=== PATIENT | female | born 1985 | race Caucasian/White ===

== ENCOUNTER 2020-06-04 11:25 | Emergency (ER) | payer OTHER ==
[2020-06-04] MEDS ORDERED: DIPH/PERTUSS(ACELL)/TETANUS VAC/PF 0.5 ML SYR (>=10YO) IM ONE (11:56)
[2020-06-04] MEDS ORDERED: HYDROCODONE/ACETAMINOPHEN 5-325 MG TABLET PO ONE (11:56)
--- NOTE | 2020-06-04 11:59 | ER Document Report ---
ED Medical Screen (RME) - General Chief Complaint: Foot Injury Stated Complaint: FALL/FOOT INJURY Time Seen by Provider: 06/04/20 11:50 Notes: Patient is a 35-year-old female who presents emergency department with a chief complaint of toe injury. Patient reports this morning she was walking on her new hardwood floors when she slipped striking the bedpost with her foot. She states that the bedpost went in between her fourth and fifth digit of the left foot causing them to split with 2 open wounds. Patient reports deformity compared to her right foot and per her normal. - Related Data Allergies/Adverse Reactions: morphine Allergy (Severe, Verified 06/04/20 11:49) Respiratory arrest adhesive tape Allergy (Mild, Verified 06/04/20 11:49) Skin Redness jameson Allergy (Mild, Verified 06/04/20 11:49) Skin Redness Past Medical History - Social History Frequency of alcohol use: Rare Physical Exam - Vital signs Vitals: Temp Pulse Resp BP Pulse Ox 98.1 F 92 18 143/97 H 97 06/04/20 11:32 06/04/20 11:32 06/04/20 11:32 06/04/20 11:32 06/04/20 11:32 Course - Re-evaluation Re-evalutation: 06/04/20 11:58 Patient has an open wound between the fourth and fifth digit at the base of the toes as well is in between the third and fourth digit. Unable to visualize the wound clearly due to blood. Dressing was applied in triage. I have greeted and performed a rapid initial assessment of this patient. A comprehensive ED assessment and evaluation of the patient, analysis of test results and completion of the medical decision making process will be conducted by additional ED providers. - Vital Signs Vital signs: Temp Pulse Resp BP Pulse Ox 98.1 F 92 18 143/97 H 97 06/04/20 11:32 06/04/20 11:32 06/04/20 11:32 06/04/20 11:32 06/04/20 11:32
--- NOTE | 2020-06-04 12:29 | RADIOLOGY REPORT (SQ) ---
EXAM DESCRIPTION: FOOT LEFT COMPLETE IMAGES COMPLETED DATE/TIME: 06/04/2020 12:17 pm REASON FOR STUDY: 4th and 5th digit toe injury, open wound COMPARISON: None. NUMBER OF VIEWS: Three views. TECHNIQUE: AP, lateral and oblique radiographic images acquired of the left foot. LIMITATIONS: None. FINDINGS: MINERALIZATION: Normal. BONES: There is a fracture of the distal aspect of the 4th proximal phalanx. JOINTS: No effusions. SOFT TISSUES: No soft tissue swelling. No foreign body. OTHER: No other significant finding. IMPRESSION: 4th proximal phalanx fracture. TECHNICAL DOCUMENTATION: JOB ID: [id number] 2010 [employer]- All Rights Reserved Reading location - IP/workstation name: [email or web address]
[2020-06-04] MEDS ORDERED: CEPHALEXIN 500 MG CAPSULE PO ONE (14:29)
[2020-06-04] MEDS ORDERED: LIDOCAINE 1% INJ-PF (10 MG/ML) 30 ML SDV INJ ONE (14:30)
--- NOTE | 2020-06-04 15:47 | ER Document Report ---
HPI - HPI Patient complains to provider of: Foot injury Time Seen by Provider: 06/04/20 11:50 Onset: Just prior to arrival Onset/Duration: Sudden Quality of pain: Sharp Pain Level: 1 Context: Patient states that she got out of the shower, slipped and hit her foot against the bed rail. Patient with left fourth toe injury with deformity and a laceration to the bottom of the toe. Exacerbated by: Standing, Movement, Walking Relieved by: Denies Similar symptoms previously: No Recently seen / treated by doctor: No - ROS ROS below otherwise negative: Yes Systems Reviewed and Negative: Yes All other systems reviewed and negative - NEURO Neurology: DENIES: Weakness - GASTROINTESTINAL Gastrointestinal: DENIES: Nausea, Patient vomiting - MUSCULOSKELETAL Musculoskeletal: REPORTS: Extremity pain - DERM Skin Color: Normal Skin Problems: Laceration Past Medical History - General Information source: Patient - Social History Smoking Status: Never Smoker Frequency of alcohol use: Rare Drug Abuse: None Occupation: None Lives with: Family Family History: Reviewed & Not Pertinent - Medical History Medical History: Other - Lupus Past Surgical History: Reports: Hx Cholecystectomy, Hx Dilation and Curettage, Hx Orthopedic Surgery, Hx Tonsillectomy Vertical Provider Document - CONSTITUTIONAL Agree With Documented VS: Yes Exam Limitations: No Limitations - HEENT HEENT: Atraumatic, Normocephalic - NECK Neck: Normal Inspection, Supple - RESPIRATORY Respiratory: Breath Sounds Normal, No Respiratory Distress - CARDIOVASCULAR Cardiovascular: Regular Rate, Regular Rhythm Pulses: Normal: Dorsalis pedis - MUSCULOSKELETAL/EXTREMETIES Musculoskeletal/Extremeties: MAEW, Tender - Left fourth toe tenderness, Edema - NEURO Level of Consciousness: Awake, Alert, Appropriate Motor/Sensory: No Motor Deficit, No Sensory Deficit - DERM Integumentary: Warm, Dry, Laceration - 2 cm laceration to plantar surface of left fourth digit that extends between the left third and fourth toes Course - Vital Signs Vital signs: Temp Pulse Resp BP Pulse Ox 98.1 F 92 18 143/97 H 97 06/04/20 11:32 06/04/20 11:32 06/04/20 11:32 06/04/20 11:32 06/04/20 11:32 - Diagnostic Test Radiology reviewed: Image reviewed, Reports reviewed Procedures - Immobilization Left Toe 4th digit Immobilizer type: Post-op shoe Performed by: PCT Post-Proc Neuro Vasc Exam: Normal Alignment checked and good: Yes - Laceration/Wound Repair Left Toe 4th digit Wound length (cm): 2 Wound's Depth, Shape: Irregular Laceration pre-procedure: Betadine prep applied Anesthetic type: 1% Lidocaine Wound explored: Clean Wound Repaired With: Sutures Suture Size/Type: 4:0, Prolene Number of Sutures: 3 Layer Closure?: No Post-procedure wound care: Sterile dressing applied, Splint applied Post-procedure NV exam normal: Yes Complications: No Discharge - Discharge Clinical Impression: Toe fracture, left Qualifiers: Encounter type: initial encounter Toe: lesser toe Fracture type: open Phalanx: proximal Fracture alignment: displaced Qualified Code(s): S92.512B - Displaced fracture of proximal phalanx of left lesser toe(s), initial encounter for open fracture Foot laceration Qualifiers: Encounter type: initial encounter Laterality: left Qualified Code(s): S91.312A - Laceration without foreign body, left foot, initial encounter Condition: Stable Disposition: HOME, SELF-CARE Instructions: Errol Taping (toes) ([facility]), Laceration Care ([facility]), Post-Op Shoe ([facility]), Prophylactic Antibiotic ([facility]), Tetanus Immunization Given ([facility]), Fractured Toe ([facility]) Additional Instructions: Return immediately for any new or worsening symptoms Followup with your primary care provider, call tomorrow to make a followup appointment Follow-up with orthopedics for further evaluation, call Sunday for a follow-up appointment Suture removal in 10 days Prescriptions: Cephalexin Monohydrate [Keflex 500 mg Capsule] 500 mg PO Q6H 5 Days #20 capsule Hydrocodone/Acetaminophen [[place] 5-325 mg Tablet] 1 tab PO Q6 PRN #12 tablet PRN Reason: Referrals: [facility] ([facility]) [Provider Group] - Follow up as needed THADDEUS SAMSON MD [ACTIVE STAFF] - Follow up as needed
[2020-06-04 16:48] VITALS: BP 148/86
== END 2020-06-04 17:23 | disposition home or self-care (01) ==
LOC: ER 11:25
DX: S92.512B Displaced fracture of proximal phalanx of left lesser toe(s), initial encounter for open fracture (principal); W01.190A Fall on same level from slipping, tripping and stumbling with subsequent striking against furniture, initial encounter; Y93.89 Activity, other specified; Z23 Encounter for immunization
CPT/HCPCS: 12001; 99283; 96372; 73630; 90715; J3490